=== PATIENT | female | born 1995 | race Two or more races ===

== ENCOUNTER 2017-01-02 17:41 | Emergency (ER) | payer SELFPAY ==
[~2017-01-02] VITALS: Ht 157.5 cm; Wt 79.4 kg
--- NOTE | 2017-01-02 18:00 | NUR ---
PT BIB [facility] S/P WITNESSED SYNCOPAL EPISODE "FOR A FEW SECONDS", BUT NOW STATES "I FEEL FINE". NO TRAUMA REPORTED. NAD NOTED. RESP EVEN UNLABORED. SKIN WARM NONDIAPHORETIC. A/OX4. MOTHER AT BEDSIDE.
[2017-01-02 18:09] LABS: BASOPHILS # (AUTO) 0.1 /CMM (0.0-0.2); BASOPHILS % (AUTO) 1.1 % (0.0-2.0); EOSINOPHILS # (AUTO) 0.1 /CMM (0.0-0.7); EOSINOPHILS % (AUTO) 0.6 % (0.0-6.0); HEMATOCRIT 38 % (33-45); HEMOGLOBIN 12.7 g/dL (11.5-14.8); LYMPHOCYTES # (AUTO) 1.7 /CMM (0.8-4.8); LYMPHOCYTES % (AUTO) 18.6 % (20.0-44.0); MEAN CORPUSCULAR HEMOGLOBIN 29 PG (26.0-33.0); MEAN CORPUSCULAR HGB CONC 34 g/dl (31.0-36.0); MEAN CORPUSCULAR VOLUME 86 fL (82-100); MONOCYTES # (AUTO) 0.3 /CMM (0.1-1.30); MONOCYTES % (AUTO) 3.4 % (2.0-12.0); NEUTROPHILS # (AUTO) 6.9 /CMM (1.8-8.9); NEUTROPHILS % (AUTO) 76.3 % (43.0-81.0); PLATELET COUNT (AUTO) 299 /CMM (150-450); RDW COEFFICIENT OF VARIATION 13.1 (11.5-15.0); RED BLOOD CELL COUNT(AUTO) 4.38 MIL/uL (4.0-5.2); WHITE BLOOD COUNT (AUTO) 9.1 K/uL (4.3-11.0)
[2017-01-02 18:57] LABS: ALBUMIN 3.7 g/dL (3.4-5.0); BILIRUBIN,DIRECT 0.1 mg/dL (0.0-0.2); BILIRUBIN,TOTAL 0.5 mg/dL (0.2-1.0); CREATININE 0.8 mg/dL (0.6-1.3)
--- NOTE | 2017-01-02 19:20 | NUR ---
REPORT GIVEN TO FIORELLA VALDOVINOS FOR XOCHITL. RESTING QUIETLY. NAD NOTED. VSS.
--- NOTE | 2017-01-02 19:21 | NUR ---
RECEIVED REPORT FROM BONIFACIO MICHELE FOR XOCHIT[facility].
[2017-01-02 19:29] LABS: CALCIUM, SERUM 7.9 mg/dL (8.5-10.1)
--- NOTE | 2017-01-02 19:50 | NUR ---
DR. RENTERIA AT BEDSIDE SPEAKING TO PT REGARDING RESULTS.
--- NOTE | 2017-01-02 19:59 | NUR ---
IV removed. Catheter intact and site benign. Pressure and 4x4 applied to site. No bleeding noted. Patient discharged to home in stable condition. Written and verbal after care instructions given. Patient verbalizes understanding of instruction. ambulatory with a steady gait. instructed not to drive. pt verbalize understanding. accompanied by mother
[2017-01-02 20:00] VITALS: BP 113/74
== END 2017-01-02 20:00 | disposition home or self-care (01) ==
LOC: ER 17:42
DX: R55 Syncope and collapse (principal); J45.909 Unspecified asthma, uncomplicated; Z88.1 Allergy status to other antibiotic agents
CPT/HCPCS: 36415; 80048; 80076; 83690; 84703; 85025; 93005; 96360; 99285; J7030; A4606; Z7610